=== PATIENT | male | born 1965 | race Caucasian/White ===

== ENCOUNTER 2018-02-24 07:54 | Day surgery (SDC) | payer OTHER ==
[2018-02-24] VITALS (14 sets, daily range): BP systolic 114–152; BP diastolic 68–82; PULSE 64–82; RESP 16–27; Ht 160 cm; Wt 66.6 kg
[~2018-02-24] VITALS: Ht 160 cm; Wt 66.6 kg
[~2018-02-24 07:54] MED LIST: CEFAZOLIN 2 GM/50 ML (PMX) 50 ML IVPB SCH; DEXAMETHASONE 4 MG/ML 5 ML INJ ONE; SOD CHLORIDE 0.9% 1,000 ML IV ONE
[2018-02-24] MEDS ORDERED: LISI10TA2 PO (08:06)
[2018-02-24] MEDS ORDERED: ATOR20TA38 PO (08:07)
[2018-02-24] MEDS ORDERED: POLYMYXIN/BACITRACIN 1L IRRIG ONE (08:23)
[2018-02-24] MEDS ORDERED: BUPIVACAINE 0.25% (MPF) 30 ML INJ ONE (08:23)
--- NOTE | 2018-02-24 09:13 | PREAC ---
Date/Time of Note Date/Time of Note DATE: 02/24/18 TIME: 09:12 Anesthesia Eval and Record Evaluation Time Pre-Procedure Interview DATE: 02/24/18 TIME: 09:12 Age 53 Sex male NPO: 8 hrs Preoperative diagnosis RIGHT INGUINAL HERNIA Planned procedure open RIGHT INGUINAL HERNIA repair Past Medical History Past Medical History: Includes Cardio: HTN, Dyslipidemia Surgery & Anesthesia Issues No known issue Meds Anticoagulation: No Beta Chayo within 24 hr: No Reason Beta Chayo not given: Pt. not on B-Chayo Reported Medications Atorvastatin Calcium* (Atorvastatin Calcium*) 20 Mg Tablet, 20 MG PO QHS, #30 TAB 02/24/18 Lisinopril* (Lisinopril*) 10 Mg Tablet, 10 MG PO DAILY, #30 TAB 02/24/18 Current Medications Cefazolin Sodium/ Dextrose 50 ml @ 100 mls/hr PRE-OP IVPB ; Start 02/24/18 at 06:00; Stop 02/24/18 at 15:00 Sodium Chloride 1,000 ml @ 75 mls/hr [id number] ONCE IV ; Start 02/24/18 at 06:00; Stop 02/24/18 at 19:19 Meds reviewed: Yes Allergies Coded Allergies: No Known Allergy (Unverified , 02/24/18) Allergies Reviewed: Yes Labs/Studies Labs Reviewed: Reviewed by anesthesiologist test: N/A Pre-procedure Exam Last vitals Vital Signs Date Temp Pulse Resp B/P (MAP) Pulse Ox O2 O2 Flow FiO2 Time Delivery Rate 02/24/18 97.3 64 16 114/69 99 Room Air 07:45 (84) Airway: Adequate mouth opening, Adequate thyromental dist Mallampati: Mallampati II Teeth: Normal Lung: Normal Heart: Normal ASA Physical Status ASA physical status: 2 Emergency: None Planned Anesthetic General/MAC: ETT Nerve block: TAP (right) Planned Pain Management Single shot nerve block, Parenteral pain med Pre-operative Attestations Prior to commencing anesthesia and surgery, the patient was re-evaluated, there was verification of: *The patient's identity *The results of appropriate recent lab work and preoperative vital signs *The above evaluation not changing prior to induction *Anesthetic plan, risk benefits, alternative and complications discussed with patient/family; questions answered; patient/family understands, accepts and wishes to proceed. Aguila Davis M.D. 10, 2019 09:13
[2018-02-24] MEDS ORDERED: CEFAZOLIN 1 GM INJ ONE (09:16)
[2018-02-24] MEDS ORDERED: PROPOFOL 20 ML ONE (09:16)
[2018-02-24] MEDS ORDERED: GLYCOPYRROLATE 0.4 MG INJ ONE (09:16)
[2018-02-24] MEDS ORDERED: ROCURONIUM 50 MG INJ ONE (09:16)
[2018-02-24] MEDS ORDERED: NEOSTIGMINE 3 MG/3 ML SYRINGE ONE (09:16)
[2018-02-24] MEDS ORDERED: ROPIVACAINE 0.5 % 30 ML VIAL ONE (09:17)
[2018-02-24] MEDS ORDERED: MIDAZOLAM 1 MG/ML 2 ML INJ ONE (09:17)
[2018-02-24] MEDS ORDERED: ONDANSETRON 4 MG INJ ONE (09:17)
[2018-02-24] MEDS ORDERED: FENTAnyl 50 MCG/ML VIAL ONE (09:17)
[2018-02-24] MEDS ORDERED: ONDANSETRON 4 MG INJ IV PRN (09:30)
[2018-02-24] MEDS ORDERED: HYDROmorphONE 1 MG/5 ML IV SYRINGE IV PRN ×3 (09:30)
[2018-02-24] MEDS ORDERED: FENTAnyl 50 MCG/ML VIAL IV PRN ×2 (09:30)
[2018-02-24] MEDS ORDERED: OXYCODONE/ACETAMINOPHEN (5/325) TAB PO PRN ×2 (09:30)
[2018-02-24] MEDS ORDERED: EPHEDrine SULFATE 50 MG/5 ML SYG IV PRN (09:30)
[2018-02-24] MEDS ORDERED: TRIMETHOBENZAMIDE 100 MG/ML VIAL IM PRN (09:30)
[2018-02-24] MEDS ORDERED: hydrALAzine 20 MG INJ IV PRN (09:30)
[2018-02-24] MEDS ORDERED: ALBUTEROL 0.083% (NEB) 2.5 MG/3 ML AMP HHN PRN (09:30)
[2018-02-24] MEDS ORDERED: MEPERIDINE 25 MG INJ IV PRN (09:30)
[2018-02-24] MEDS ORDERED: DIPHENHYDRAMINE 50 MG INJ IV PRN (09:30)
[2018-02-24] MEDS ORDERED: LABETALOL HCL 20MG INJ IV PRN (09:30)
[2018-02-24] MEDS ORDERED: MIDAZOLAM 1 MG/ML 2 ML INJ IV PRN (09:30)
[2018-02-24] MEDS ORDERED: IPRATROPIUM (NEB) 0.5 MG/2.5 ML AMP HHN PRN (09:30)
[2018-02-24] MEDS ORDERED: SUGAMMADEX SODIUM 200 MG/2 ML VIAL IV ONE (10:14)
[2018-02-24] MEDS ORDERED: HYDROCODONE/APAP (5/325) TAB PO ONE (10:30)
--- NOTE | 2018-02-24 10:34 | PAC ---
Date/Time of Note Date/Time of Note DATE: 02/24/18 TIME: 10:34 Post-Anesthesia Notes Post-Anesthesia Note Last documented vital signs Vital Signs Date Temp Pulse Resp B/P (MAP) Pulse Ox O2 O2 Flow FiO2 Time Delivery Rate 02/24/18 98.0 10:18 02/24/18 64 16 114/69 99 Room Air 07:45 (84) Activity: WNL Respiratory function: WNL Cardiovascular function: WNL Mental status: Baseline Pain reasonably controlled: Yes Hydration appropriate: Yes Nausea/Vomiting absent: Yes Aguila Davis M.D. Feb 24, 2018 10:34
[2018-02-24] MEDS: FENTAnyl 50 MCG/ML VIAL IV PRN ×3 (10:39→10:51)
--- NOTE | 2018-02-24 10:46 | OPR ---
Date/Time of Note Date/Time of Note DATE: 02/24/18 TIME: 10:26 Operative Report Procedure Date: Feb 24, 2018 Preoperative Diagnosis incarcerated right inguinal hernia Postoperative Diagnosis same Operation/Procedure Performed open incarcerated right inguinal hernia repair with medium ultrapro hernia system mesh Surgeon see signature line Cracker Off none Anesthesia Type: general Estimated Blood Loss: 10 - 50 ml's Transfusion none Specimen none Grafts/Implants none Complications none Pt Condition Post Procedure: stable Indications This is a 53-year-old male with a right incarcerated inguinal hernia. He requires surgical repair. Risks alternatives benefits and percent were discussed the patient. Patient expresses understanding and consents to the operation. Procedure Description Patient is taken to the OR and prepped and draped in usual sterile fashion. Surgical timeout was performed. IV antibiotics given. Right inguinal oblique incision was made with a 10 blade. Dissection with cautery was carried down to the extremity fascia. The external fascia is open with a 15 blade. This incision was extended medially inferiorly lateral sparely with Metzenbaum scissors. Cord structures identified and encircled with a [place] drain. Incarcerated inguinal hernia is then manually reduced after lysis of adhesions. This area was then bolstered with the disc portion of the ultra pro hernia system mesh. The disc is secured to the inguinal ligament with a running 0 Prolene from the pubic tubercle along the shelving is unlimited. Superiorly the disc is secured to the internal oblique with interrupted 3-0 Vicryl. [place] mesh is secured in a similar fashion with a running 0 Prolene from the pubic tubercle along the shelving edge of inguinal ligament. Straps are created and reappro ximated around the cord structures to recreate the inguinal ring with interrupted 0 Prolene. [place] mesh was then secured to the internal oblique with interrupted 3-0 Vicryl. Externally fascia was closed in running 3-0 Vicryl. Tona's fascia is closed with interrupted 3-0 Vicryl. Skin is closed using a inNeurescue observable skin stapler. A tap block had been provided by the anesth esiologist. Steri-Strips and dry dressings were applied. Austin MONTOYA Feb 24, 2018 10:46
== END 2018-02-24 13:00 | disposition home or self-care (01) ==
LOC: SDS 07:54
PROVIDERS: ATTEND Surgery
DX: K40.90 Unilateral inguinal hernia, without obstruction or gangrene, not specified as recurrent (principal); I10 Essential (primary) hypertension; E78.5 Hyperlipidemia, unspecified
CPT/HCPCS: 49505; C1781; J0690; J1100; J2250; J2405; J2795; J3010; Z7512; Z7610; 90686; J2710